=== PATIENT | male | born 1985 | race Caucasian/White ===

== ENCOUNTER 2022-10-10 08:20 | Emergency (ER) | payer OTHER ==
[2022-10-10] MEDS ORDERED: Lidocaine 1% 5 ML VIAL INJECT ONE (08:40)
[2022-10-10] MEDS ORDERED: Bacitracin Oint 1 GM U/D Packet TOP ONE (08:40)
[2022-10-10] MEDS ORDERED: Diphtheria,Pertussis(Acell),Tetanus Vaccine 0.5 ML Syringe IM ONE (09:08)
== END 2022-10-10 09:23 | disposition home or self-care (01) ==
LOC: JP.ED 08:20
DX: S61.210A Laceration without foreign body of right index finger without damage to nail, initial encounter (principal); W27.0XXA Contact with workbench tool, initial encounter
CPT/HCPCS: 12002; 90471; 90715; 99283-25